=== PATIENT | female | born 1980 | race Caucasian/White ===

== ENCOUNTER 2017-07-28 02:15 | Inpatient (IN) | payer BC ==
[~2017-07-28] VITALS: Ht 165.1 cm; Wt 96.0 kg
--- OUTSIDE RECORDS SUMMARY | ~2017-07-28 | XMS ---
Demographics + + + | Address | [address] | | | [address] | | | [place] [address] | + + + | Preferred Language | Unknown | + + + | Marital Status | Unknown | + + + | Holiness Affiliation | Unknown | + + + | Race | Unknown | + + + | Ethnic Group | Unknown | + + + Author + + + | Author | [facility] | + + + | Organization | [facility] | + + + | Address | [address] | | | [place] [address] | + + + | Phone | | + + + Care Team Providers + + + + | Care Engineering Faculty Member Name | Role | Phone | + + + + Unavailable | Unavailable | + + + + PROBLEMS +---------+ + + +--------+ + + | Type | Condition | ICD9-CM | CER85-MV | Onset | Condition | SNOMED | | | | Code | Code | Dates | Status | Code | +---------+ + + +--------+ + + | Problem | Encounter | Z34.90 | | | Active | [id number] | | | for | | | | | | | | supervisio | | | | | | | | n of | | | | | | | | normal | | | | | | | | | | | | | | +---------+ + + +--------+ + + | Problem | Flu | J11.1 | | | Active | [id number] | +---------+ + + +--------+ + + | Problem | LOM (left | H66.92 | | | Active | [id number] | | | otitis | | | | | | | | media) | | | | | | +---------+ + + +--------+ + + ALLERGIES Unknown Allergies SOCIAL HISTORY No smoking Hx information available PLAN OF CARE VITAL SIGNS MEDICATIONS + + + + + + + +--------+ | Medicati | Instruct | Dosage | Frequenc | Start | End Date | Duration | Status | | on | ions | | y | Date | | | | + + + + + + + +--------+ | Diflucan | Orally | 1 tablet | | Apr, | 27 Apr, | 1 dose | Active | | 150 MG | Once | | | 2017 | 2017 | | | + + + + + + + +--------+ RESULTS No Results PROCEDURES No Known procedures IMMUNIZATIONS No Known Immunizations"
--- OUTSIDE RECORDS SUMMARY | ~2017-07-28 | XMS ---
Demographics + + + | Address | [address] | | | [address] | | | [place] [address] | + + + | Preferred Language | Unknown | + + + | Marital Status | Unknown | + + + | Religion Affiliation | Unknown | + + + | Race | Unknown | + + + | Ethnic Group | Unknown | + + + Author + + + | Author | [facility] | + + + | Organization | [facility] | + + + | Address | [address] | | | [place] [address] | + + + | Phone | | + + + Care Team Providers + + + + | Care Product Marketing Engineer Name | Role | Phone | + + + + Unavailable | Unavailable | + + + + PROBLEMS +---------+ + + +--------+ + + | Type | Condition | ICD9-CM | [id number] | Onset | Condition | SNOMED | | | | Code | Code | Dates | Status | Code | +---------+ + + +--------+ + + | Problem | Encounter | Z34.90 | | | Active | [id number] | | | for | | | | | | | | supervisio | | | | | | | | n of | | | | | | | | normal | | | | | | | | | | | | | | +---------+ + + +--------+ + + | Problem | Flu | J11.1 | | | Active | 2966542 | +---------+ + + +--------+ + + | Problem | LOM (left | H66.92 | | | Active | [id number] | | | otitis | | | [...] + + + + + +--------+ | Zovirax | Orally | 1 tablet | 8h | 05 Lukas, | | 5 days | Active | | 400 MG | Three | | | 2017 | | | | | | times a | | | | | | | | | day | | | | | | | + + + + + + + +--------+ RESULTS No Results PROCEDURES No Known procedures IMMUNIZATIONS No Known Immunizations"
--- OUTSIDE RECORDS SUMMARY | ~2017-07-28 | XMS ---
Demographics + + + | Address | [address] | | | [address] | | | [place] [address] | + + + | Preferred Language | Unknown | + + + | Marital Status | Unknown | + + + | Islam Affiliation | Unknown | + + + | Race | Unknown | + + + | Ethnic Group | Unknown | + + + Author + + + | Author | [facility] | + + + | Organization | [facility] | + + + | Address | [address] | | | [place] [address] | + + + | Phone | | + + + Care Team Providers + + + + | Care Larriman Name | Role | Phone | + + + + Unavailable | Unavailable | + + + + PROBLEMS +---------+ + + +--------+ + + | Type | Condition | ICD9-CM | TFS31-SK | Onset | Condition | SNOMED | | | | Code | Code | Dates | Status | Code | +---------+ + + +--------+ + + | Problem | Encounter | Z34.90 | | | Active | [id number] | | | for | | | | | | | | supervisio | | | | | | | | n of | | | | | | | | normal | | | | | | | | | | | | | | +---------+ + + +--------+ + + | Problem | Flu | J11.1 | | | Active | 2673894 | +---------+ + + +--------+ + + | Problem | LOM (left | H66.92 | | | Active | [id number] | | | otitis | | | | | | | | media) | | | | | | +---------+ + + +--------+ + + ALLERGIES Unknown Allergies SOCIAL HISTORY No smoking Hx information available PLAN OF CARE VITAL SIGNS MEDICATIONS Unknown Medications RESULTS No Results PROCEDURES No Known procedures IMMUNIZATIONS No Known Immunizations"
[~2017-07-28 02:15] MED LIST: CEPHALEXIN500 MG PO; CYMBALTA30 MG PO; GABAPENTIN100 MG PO; KEFLEX500 MG PO; KOSHER PRENATA1 EACH PO; MELOXICAM15 MG PO; METOPROLOL TART25 MG PO; NORCO 5-325 TA1 EACH PO; PERCOCET 5-3251 EACH PO; PLAQUENIL200 MG PO; PROMETHAZINE12.5 M1 PO; XANAX0.5 MG PO
== END 2017-07-29 12:25 | disposition home or self-care (01) | DRG 775 ==
LOC: FBCO 02:15 → FBC 03:40
PROVIDERS: ADMIT Obstetrics & Gynecology
PROC: 10E0XZZ Delivery of Products of Conception, External Approach (ICD-10-PCS; principal; 2017-07-28)
PROC: 10907ZC Drainage of Amniotic Fluid, Therapeutic from Products of Conception, Via Natural or Artificial Opening (ICD-10-PCS; 2017-07-28)
PROC: 3E0234Z Introduction of Serum, Toxoid and Vaccine into Muscle, Percutaneous Approach (ICD-10-PCS; 2017-07-29)
DX: O80 Encounter for full-term uncomplicated delivery (principal); Z3A.38 38 weeks gestation of pregnancy; Z37.0 Single live birth; Z23 Encounter for immunization
CPT/HCPCS: 01960; 36415; 85027; 90707; J2590; J7120

== ENCOUNTER 2018-01-27 03:48 | Emergency (ER) | payer BC ==
[~2018-01-27] VITALS: Ht 165.1 cm; Wt 90.7 kg
[2018-01-27] MEDS ORDERED: METHOTREXA25 MG/1 ML INJ (04:10)
--- OUTSIDE RECORDS SUMMARY | 2018-01-27 05:42 | XMS | Clinical Summary ---
Demographics + + + | Address | [address] | | | [place] [address] | + + + | Home Phone | | + + + | Preferred Language | Unknown | + + + | Marital Status | Unknown | + + + | Restorationism Affiliation | Unknown | + + + | Race | Unknown | + + + | Ethnic Group | Unknown | + + + Author + + + | Author | [facility] | + + + | Organization | [facility] | + + + | Address | Unknown | + + + | Phone | Unavailable | + + + Support + + +---------+ + | Name | Relationship | Address | Phone | + + +---------+ + | Alcon Mercado | ECON | Unknown | | + + +---------+ + Care Team Providers + +------+ + | Care Retail Client Solutions Analyst Name | Role | Phone | + +------+ + | Azam Granda MD | PP | | + +------+ + Allergies + + + + + + | Active Allergy | Reactions | Severity | Noted | Comments | | | | | Date | | + + + + + + | Moxifloxacin | Rash | Medium | 20/20 | | | | | | 17 | | + + + + + + | Codeine | Nausea and Vomiting | Low | 04/20/20 | | | | | | 17 | | + + + + + + | Latex | Rash | Medium | 06/05/20 | | | | | | 17 | | + + + + + + | Ondansetron | Nausea and Vomiting | Low | 02/10/20 | | | | | | 17 | | + + + + + + Current Medications + + +-------+---------+------+------+-------+ | Prescription | Sig. | Disp. | Refills | Star | End | Statu | | | | | | t | Date | s | | | | | | Date | | | + + +-------+---------+------+------+-------+ | Vit-Fe | Take 1 tablet by | | | | | Activ | | Fumarate-FA | mouth daily with | | | | | e | | ( | breakfast. | | | | | | | MULTIVITAMIN & | | | | | | | | MINERALS W IRON/FA) | | | | | | | | 27-0.8 MG TABS | | | | | | | | tablet | | | | | | | + + +-------+---------+------+------+-------+ | metoprolol | Take 25 mg by mouth | | | | | Activ | | (LOPRESSOR) 25 MG | 2 (two) times daily | | | | | e | | tablet | as needed. | | | | | | + + +-------+---------+------+------+-------+ Active Problems + + + | Problem | Noted Date | + + + | SVT (supraventricular tachycardia) | 06/05/2017 | + + + Family History + + +------+ + | Medical History | Relation | Name | Comments | + + +------+ + | Diabetes type II | Father | | | + + +------+ + + +------+--------+ + | Relation | Name | Status | Comments | + +------+--------+ + | Father | | | | + +------+--------+ + Social History + +-------+ +--------+ + | Tobacco Use | Types | Packs/Day | Years | Date | | | | | Used | | + +-------+ +--------+ + | Former Smoker | | | | Quit: 11/23/2016 | + +-------+ +--------+ + + +---+---+---+ | Smokeless Tobacco: | | | | | Never Used | | | | + +---+---+---+ + + +---------+ + | Alcohol Use | Drinks/We | oz/Week | Comments | | | ek | | | + + +---------+ + | No | | | | + + +---------+ + + + + | Sex Assigned at | Date Recorded | | | | + + + | Not on file | | + + + Last Filed Vital Signs + + + + | Vital Sign | Reading | Time Taken | + + + + | Blood Pressure | 118/60 | 09/06/2017 2:11 PM PST | + + + + | Pulse | 87 | 09/06/2017 2:11 PM PST | + + + + | Temperature | - | - | + + + + | Respiratory Rate | - | - | + + + + | Oxygen Saturation | 97% | 09/06/2017 2:11 PM PST | + + + + | Inhaled Oxygen | - | - | | Concentration | | | + + + + | Weight | 89.7 kg (197 lb 11.2 | 09/06/2017 2:11 PM PST | | | oz) | | + + + + | Height | 165.1 cm (5' 5") | 09/06/2017 2:11 PM PST | + + + + | Body Mass Index | 32.9 | 09/06/2017 2:11 PM PST | + + + + Plan of Treatment + + + + + | Health Maintenance | Due Date | Last Done | Comments | + + + + + | Vaccine: | | | | | Dtap/Tdap/Td (1 - | 1 | | | | Tdap) | | | | + + + + + | Cervical Cancer | | | | | Screening (Pap) | 3 | | | + + + + + | Vaccine: Influenza | | | | | (Season Ended) | 8 | | | + + + + + Results Not on filefrom Last 3 Months Insurance +---------+--------+ +------+-------+ + | Payer | Benefi | Subscriber | Type | Phone | Address | | | t Plan | ID | | | | | | / | | | | | | | Group | | | | | +---------+--------+ +------+-------+ + | PREMERA | PREMER | xxxxxxxxxxx | | | [place] [address] [id number] | | | A BLUE | [phone] | | | [place] | | | CARD | | | | [phone] | +---------+--------+ +------+-------+ + + +--------+ +--------+ + + | Guarantor Name | Accoun | Relation to | Date | Phone | Billing Address | | | t Type | Patient | of | | | | | | | | | | + +--------+ +--------+ + + | MELLISSA JIMENEZ | Person | Self [birth year] | Home: | [address] | | | al/Fam | | 1980 | [phone] | [address], | | | [place] | | | [phone] | [place] [address] | + +--------+ +--------+ + +
--- OUTSIDE RECORDS SUMMARY | 2018-01-27 05:42 | XMS | Clinical Summary ---
Demographics + + + | Address | [address] | | | [place] [address] | + + + | Home Phone | | + + + | Preferred Language | Unknown | + + + | Marital Status | Unknown | + + + | Gnosticism Affiliation | Unknown | + + + | Race | Unknown | + + + | Ethnic Group | Unknown | + + + Author + + + | Author | [facility] | + + + | Organization | [facility] | + + + | Address | Unknown | + + + | Phone | Unavailable | + + + Support + + +---------+ + | Name | Relationship | Address | Phone | + + +---------+ + | Alcon Mercado | ECON | Unknown | | + + +---------+ + Care Team Providers + +------+ + | Care Coal Trimmer Machine Operator Name | Role | Phone | + [...] | [phone] | | | [place] [address] [id number] | | | A BLUE | xxx | | | [place] | | | CARD | | | | [phone] | +---------+--------+ +------+-------+ + + +--------+ +--------+ + + | Guarantor Name | Accoun | Relation to | Date | Phone | Billing Address | | | t Type | Patient | of | | | | | | | | | | + +--------+ +--------+ + + | MELLISSA JIMENEZ | Person | Self | [birth year] | Home: | [address] | | | al/Fam | | 1980 | [phone] | [address] [place], | | | [place] | | | [phone] | [place] [phone] | + +--------+ +--------+ + +
[2018-01-27] MEDS ORDERED: NORCO 5-325 TA1 EACH PO (06:14)
[2018-01-27] MEDS ORDERED: CEPHALEXIN500 MG PO (06:14)
== END 2018-01-27 06:45 | disposition home or self-care (01) ==
LOC: ED 03:48
DX: J02.0 Streptococcal pharyngitis (principal); F17.200 Nicotine dependence, unspecified, uncomplicated; M06.9 Rheumatoid arthritis, unspecified; Z88.8 Allergy status to other drugs, medicaments and biological substances; Z91.040 Latex allergy status; Z88.5 Allergy status to narcotic agent; Z88.1 Allergy status to other antibiotic agents; Z79.899 Other long term (current) drug therapy
CPT/HCPCS: 71046; 80053; 81001; 85025; 87880; 96374; 96375; 99283; J0690; J1885; J7030

== ENCOUNTER 2018-11-09 09:53 | Emergency (ER) | payer BC ==
[~2018-11-09] VITALS: Ht 165.1 cm; Wt 90.7 kg
[~2018-11-09 09:53] MED LIST changes: +METHOTREXA25 MG/1 ML INJ
[2018-11-09] MEDS ORDERED: MELOXICAM15 MG PO (10:04)
[2018-11-09] MEDS ORDERED: CYMBALTA30 MG PO (10:33)
[2018-11-09] MEDS ORDERED: CYCLOBENZAPRINE10 MG PO (10:33)
[2018-11-09] MEDS ORDERED: NEURONTIN300 MG PO (10:33)
== END 2018-11-09 10:39 | disposition home or self-care (01) ==
LOC: ED 09:53
DX: M54.41 Lumbago with sciatica, right side (principal); M79.7 Fibromyalgia; M06.9 Rheumatoid arthritis, unspecified; F17.200 Nicotine dependence, unspecified, uncomplicated; Z91.09 Other allergy status, other than to drugs and biological substances; Z91.040 Latex allergy status; Z88.1 Allergy status to other antibiotic agents; Z88.5 Allergy status to narcotic agent; Z88.8 Allergy status to other drugs, medicaments and biological substances; Z79.899 Other long term (current) drug therapy
CPT/HCPCS: 99283

== ENCOUNTER 2019-07-04 20:04 | Emergency (ER) | payer BC ==
[~2019-07-04] VITALS: Ht 165.1 cm; Wt 90.7 kg
[~2019-07-04 20:04] MED LIST changes: +CYCLOBENZAPRINE10 MG PO; +NEURONTIN300 MG PO
[2019-07-04] MEDS ORDERED: DICLOFENAC SODI50 MG PO (20:11)
[2019-07-04] MEDS ORDERED: DIFLUCAN150 MG PO (20:12)
== END 2019-07-04 21:12 | disposition home or self-care (01) ==
LOC: ED 20:04
DX: G43.909 Migraine, unspecified, not intractable, without status migrainosus (principal); F17.200 Nicotine dependence, unspecified, uncomplicated; Z91.040 Latex allergy status; Z88.8 Allergy status to other drugs, medicaments and biological substances; Z88.1 Allergy status to other antibiotic agents; Z88.5 Allergy status to narcotic agent; Z91.048 Other nonmedicinal substance allergy status
CPT/HCPCS: 96361; 96374; 96375; 99283-25; J1200; J1885; J2765; J7030

== ENCOUNTER 2019-12-25 13:59 | Emergency (ER) | payer BC ==
[~2019-12-25] VITALS: Ht 165.1 cm; Wt 90.7 kg
[~2019-12-25 13:59] MED LIST changes: +DICLOFENAC SODI50 MG PO; +DIFLUCAN150 MG PO
--- OUTSIDE RECORDS SUMMARY | 2019-12-25 14:02 | XMS ---
PreManage Notification: BIJAN ENGLAND Security Psych Social Worker Events No recent Security Events currently on file CRITERIA MET - [facility] CARE PROVIDERS There are no care providers on record at this time. Tala has no Care Guidelines for this patient. Andrey VISIT COUNT (12 MO.) 2 RANDA Bernstein TOTAL 2 NOTE: Visits indicate total known visits. ED/C VISIT TRACKING (12 MO.) 12/25/2019 13:59 [place] TYPE: Emergency COMPLAINT: - HEADACHE 07/04/2019 20:05 [place] TYPE: Emergency COMPLAINT: - HEADACHE DIAGNOSES: - Headache - Other nonmedicinal substance allergy status - Latex allergy status - Nicotine dependence, unspecified, uncomplicated - Allergy status to other antibiotic agents status - Allergy status to oth drug/meds/biol subst status - Allergy status to narcotic agent status - Migraine, unsp, not intractable, without status migrainosus INPATIENT VISIT TRACKING (12 MO.) No inpatient visits to display in this time frame [email or web address]
== END 2019-12-25 15:48 | disposition home or self-care (01) ==
LOC: ED 13:59
DX: G43.909 Migraine, unspecified, not intractable, without status migrainosus (principal); Z91.048 Other nonmedicinal substance allergy status; Z91.040 Latex allergy status; Z88.1 Allergy status to other antibiotic agents; Z88.5 Allergy status to narcotic agent; Z79.899 Other long term (current) drug therapy
CPT/HCPCS: 96374; 96375; 99283-25; J1200; J1885; J2765

== ENCOUNTER 2022-03-06 06:34 | Inpatient (IN) | payer BC ==
[~2022-03-06] VITALS: Ht 165.1 cm; Wt 90.7 kg
--- NOTE | ~2022-03-06 | HP ---
[facility] [address] [place], [place] [address] Draft ADMISSION DATE: 03/06/2022 CHIEF COMPLAINT: Flank pain. HISTORY OF PRESENT ILLNESS: Mrs. Jimenez is a pleasant 41-year-old, G4, P3, with IUP at 17 weeks four days by LMP, confirmed by first-trimester ultrasound, who presented to the emergency department complaining of increasing right flank pain since earlier this week. complicated by history of supraventricular tachycardia, migraines, advanced maternal age, fibromyalgia, and history of HSV. At routine OB visit today, the patient was concerned of possible urinary tract infection and urine culture was obtained. Unfortunately, culture results had not yet been reported. The patient reports right flank pain increasing in intensity and severity, feels like "I'm being punched." The pain radiates over her entire right side especially down into her pelvis and somewhat down her leg. She denies fevers or chills. Does report dysuria. Has a history of kidney stones in the past, but reports that this feels "different and more crampy." The patient reports no bleeding or abnormal discharge. She has occasional cramping and has a history of labor. She reports possible early flutters. No other questions or concerns at this time. PAST MEDICAL HISTORY: 1. Supraventricular tachycardia. 2. Rheumatoid arthritis. 3. Migraines. 4. Fibromyalgia. PAST SURGICAL HISTORY: 1. Cholecystectomy. 2. Heart ablation for SVT. 3. Tubes and adenoids. 4. History of various orthopedic procedures. FAMILY HISTORY: None. MEDICATIONS: 1. vitamin. 2. Imitrex p.r.n. ALLERGIES: PATIENT NAME: BIJAN JIMENEZ HISTORY AND PHYSICAL DATE OF : 84 REPORT #: [id number] PHYSICIAN: NKECHI BAZAN DO PCP: DOTTIE HORAN MD REPORT IS CONFIDENTIAL AND NOT TO BE RELEASED WITHOUT AUTHORIZATION [facility] [address] [place], [place] [address] Draft 1. Codeine, nausea, but is able to tolerate Carson. 2. Zofran, nausea. SOCIAL HISTORY: The patient does not use tobacco or alcohol or recreational drugs. 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 PHYSICAL EXAMINATION: VITAL SIGNS: Temperature 98.6, pulse 87, respiratory rate 18, blood pressure 124/57, and SaO2 of 98%. GENERAL: The patient is woman, sitting somewhat uncomfortably in a hospital [place]. Gravid uterus. HEENT: Normocephalic, atraumatic. NECK: Normal with no masses. Trachea midline. HEART: Regular rate and rhythm. LUNGS: Clear to auscultation bilaterally. ABDOMEN: Soft, nondistended, nontender, with no guarding or rebound. Gravid uterus with fundus approximately 17 cm. Left flank normal. Right flank very tender to light percussion. EXTREMITIES: No edema. PELVIC: Deferred. LABORATORY DATA: WBCs 10.8, hemoglobin 12.6, and platelets 249. CMP was normal. Urine shows protein, blood, nitrites, and no crystals. Ultrasound demonstrates right hydronephrosis, normal left kidney and bilateral ureteral jets. DIAGNOSES: 1. Intrauterine at 17 weeks' gestation. 2. Acute pyelonephritis. 3. History of nephrolithiasis and possible current nephrolithiasis. PLAN: The patient received ceftriaxone 1 g IV in the emergency department. Considering the severity of the patient's pain, recommend inpatient admission where she will receive Rocephin daily until significant improvement in her symptoms. Urine culture in the office was reviewed that demonstrates resistance to Bactrim, gentamicin, and ampicillin. Sensitivity to ceftriaxone and ciprofloxacin noted. We will treat the patient's pain with combination of IV Dilaudid for breakthrough pain, Carson and Tylenol. We will treat possible nephrolithiasis with Flomax and IV fluids. Dr. Cobos was consulted by the emergency department physician and she recommends repeat ultrasound as outpatient to ensure that the ureter stayed patent. Obstetrical ultrasound was ordered today for PATIENT NAME: BIJAN JIMENEZ HISTORY AND PHYSICAL DATE OF : [birth year] REPORT #: [id number] PHYSICIAN: NKECHI BAZAN DO PCP: DOTTIE HORAN MD REPORT IS CONFIDENTIAL AND NOT TO BE RELEASED WITHOUT AUTHORIZATION [address] [address] Draft history of labor and cramping to ensure the cervix was not significantly shortened. Anticipate discharge home in one or two days once significant progression in her symptoms has been confirmed with outpatient followup renal ultrasound. All questions were answered to best of my ability to the patient's apparent satisfaction. Nkechi Bazan DO JDW/MODL /[id number] Copies: ~ PATIENT NAME: SAMANTABIJAN MILLER HISTORY AND PHYSICAL DATE OF : [birth year] REPORT #: [id number] PHYSICIAN: NKECHI BAZAN DO PCP: DOTTIE HORAN MD REPORT IS CONFIDENTIAL AND NOT TO BE RELEASED WITHOUT AUTHORIZATION
--- OUTSIDE RECORDS SUMMARY | 2022-03-06 06:36 | XMS ---
PreManage Notification: BIJAN ENGLAND Security Chief Lifestyle Officer Events No recent Security Events currently on file CRITERIA MET - PDMP CARE PROVIDERS DOTTIE HORAN [facility] 12/26/2019-Current PHONE: [phone] Tala has no Care Guidelines for this patient. EAparna VISIT COUNT (12 MO.) 1 RANDA Bernstein TOTAL 1 NOTE: Visits indicate total known visits. ED/UCC VISIT TRACKING (12 MO.) 03/06/2022 06:34 [place] [place] TYPE: Emergency COMPLAINT: - FLANK PAIN/17 WEEKS PREG INPATIENT VISIT TRACKING (12 MO.) No inpatient visits to display in this time frame [email or web address]
--- NOTE | 2022-03-07 08:29 | PR ---
[facility] [address] [address] [facility] [place], [place] [address] Signed AP Progress Notes Datetime Report Generated by CPN: 03/07/2022 08:29 Chief Complaint: Pyelonephritis PHYSICAL EXAM: [id number] General: Normal HEENT: Normal Neurologic: Normal Thyroid: Normal Cardiovascular: Normal Respiratory: Normal Breast: Normal Back: Abnormal Abdomen: Normal Genitourinary Exam: Not Done Extremities: Normal Physical Exam Comments: Flank pain on RIGHT continues to be significant / unchanged. Impression: IUP @ 17w5d Pyelonephritis Possible nephrolithiasis Plan: Pt seen and examined. Doing well. _ 20 - 30% improvement in pain. Afebrile. Voiding well. Needed dilaudid overnight Plan: continue ceftriaxone daily. Continue tx of possible stone w/ flomax / narcotics / IV fluids. Anticipate d/c home tomorrow if pain significantly improved. If not improved, would consult Dr. Cobos for further evaluation of cystourothroscopy or stenting if she thought that was indicated. VITAL SIGNS: [id number] EXAM: [id number] MEMBRANES: [id number] FETUS A: [id number] FETUS B: [id number] PROGRESS NOTES: [id number] Signing Physician: Nkechi Bazan DO Copies: ~ *Electronically Signed* 03/07/22 0829 NKECHI BAZAN DO PATIENT NAME: BIJAN ENGLAND [place] PROGRESS NOTE DATE OF : 84 PHYSICIAN: NKECHI BAZAN DO RPT #: [id number] REPORT IS CONFIDENTIAL AND NOT TO BE RELEASED WITHOUT AUTHORIZATION
--- NOTE | 2022-03-08 09:02 | PR ---
[facility] [address] [facility] [place], [place] [address] Signed AP Progress Notes Datetime Report Generated by CPN: 03/08/2022 09:02 Chief Complaint: Pyelonephritis PHYSICAL EXAM: [id number] General: Normal HEENT: Normal Neurologic: Normal Thyroid: Normal Cardiovascular: Normal Respiratory: Normal Breast: Not Done Back: Normal Abdomen: Normal Genitourinary Exam: Not Done Extremities: Normal Physical Exam Comments: Flank pain much improved. Afebril. Impression: IUP @ 17w6d Pyelonephritis - improved Possible nephrolithiasis Plan: Pt doing much better. Afebril and pain much improved. Desires d/c home. Reviewed culture obtained in office last week. Discharge home w/ Macrobid 100mg BID x 10d, Keflex 500mg nightly for remainder of after completion of macrobid, Kindred 5/325 1 tab po q 6 hr prn pain #10, Flomax 0.4mg PO daily x 30d, and Phenergan 12.5mg 1 tab po q6 hr prn nausea. VITAL SIGNS: [id number] EXAM: [id number] MEMBRANES: [id number] FETUS A: [id number] FETUS B: [id number] PROGRESS NOTES: [id number] Signing Physician: Nkechi Bazan DO Copies: ~ *Electronically Signed* 03/08/22 0902 NKECHI BAZAN DO PATIENT NAME: BIJAN ENGLAND [place] PROGRESS NOTE DATE OF : 84 PHYSICIAN: NKECHI BAZAN DO [facility] #: [id number] REPORT IS CONFIDENTIAL AND NOT TO BE RELEASED WITHOUT AUTHORIZATION
== END 2022-03-08 09:50 | disposition home or self-care (01) | DRG 833 ==
LOC: ED 06:34 → FBC 10:52
PROVIDERS: ADMIT Obstetrics & Gynecology; ATTEND Obstetrics & Gynecology
DX: O23.02 Infections of kidney in pregnancy, second trimester (principal); Z20.822 Contact with and (suspected) exposure to COVID-19; N20.0 Calculus of kidney; M79.7 Fibromyalgia; M06.9 Rheumatoid arthritis, unspecified; G43.909 Migraine, unspecified, not intractable, without status migrainosus; Z90.49 Acquired absence of other specified parts of digestive tract; Z98.890 Other specified postprocedural states; Z3A.17 17 weeks gestation of pregnancy; Z88.5 Allergy status to narcotic agent; Z88.8 Allergy status to other drugs, medicaments and biological substances
CPT/HCPCS: 36415; 76770; 76815; 76817; 80048; 81001; 84112; 85025; 87088; 87502; A9270; C9803; J0696; J1170; J1650; J2550; J2765; J7030; U0003

== ENCOUNTER 2022-08-01 22:18 | Inpatient (IN) | payer BC ==
[~2022-08-01] VITALS: Ht 165.1 cm; Wt 104.3 kg
[2022-08-02] MEDS ORDERED: METOPROLOL TART25 MG PO (05:46)
--- NOTE | 2022-08-02 08:06 | PR ---
[facility] [address] [facility] [place], [place] [address] Signed Progress Notes IP Datetime Report Generated by CPN: 08/02/2022 08:05 PROGRESS NOTES: [id number] Impression: Normal Progression of Labor; Reassuring Heart Rate Procedures: Sterile Vag Exam Plan: Continue Present Management VITAL SIGNS: [id number] Vital Signs: Reviewed; Within Normal Limits VS Notable Details: Afebrile EXAM: [id number] Dilatation: 4.0 Effacement: 60 Station: -2 Contractions: Irregular MEMBRANES: [id number] Comments: Pt seen and examined. Comfortable w/ epidural. Continue pitocin augmentation; consider internals at next check. FETUS A: [id number] FHR Baseline: 145 Variability: Moderate 6-25bpm Accelerations: None Decelerations: None FHR Category: Category I Presentation: Vertex Comments on Fetus A: No evidence of metabolic acidosis FETUS B: [id number] Signing Physician: Nkechi Bazan DO Copies: ~ *Electronically Signed* 08/02/22 08 NKECHI BAZAN DO PATIENT NAME: SAMANTABIJAN [facility] PROGRESS NOTE DATE OF : 84 PHYSICIAN: NKECHI BAZAN DO RPT #: [id number] REPORT IS CONFIDENTIAL AND NOT TO BE RELEASED WITHOUT AUTHORIZATION
--- NOTE | 2022-08-02 10:50 | PR ---
[facility] [address] [place], [place] [address] Signed Progress Notes IP Datetime Report Generated by CPN: 08/02/2022 10:50 PROGRESS NOTES: [id number] Impression: Normal Progression of Labor; Reassuring Heart Rate Procedures: Artificial ROM; Intrauterine Pressure Catheter Plan: Continue Present Management; Anticipate Vaginal Delivery Informed Consent Obtain: Vaginal Delivery VITAL SIGNS: [id number] Vital Signs: Reviewed; Within Normal Limits VS Notable Details: Afebrile EXAM: [id number] Dilatation: 6.0 Effacement: 80 Station: -2 Contractions: Irregular MEMBRANES: [id number] ROM Note: forebag ruptured by Bazan DO Comments: Pt seen and examined. Comfortable w/ epidural. Reviewed residual forebag and recommend AROM w/ IUPC insertion. Pt understands and agrees. Small forebag ruptured for small amount of clear fluid. IUPC placed w/out difficulty. Reviewed normal progress of labor and anticipated . All questions answered. FETUS A: [id number] FHR Baseline: 145 Variability: Moderate 6-25bpm Accelerations: None Decelerations: None FHR Category: Category I Presentation: Vertex Comments on Fetus A: No evidence of metabolic acidosis FETUS B: [id number] Signing Physician: Nkechi Bazan DO Copies: ~ *Electronically Signed* 08/02/22 1057 NKECHI BAZAN DO PATIENT NAME: BIJAN ENGLAND ANGELA PROGRESS NOTE DATE OF : 84 PHYSICIAN: NKECHI BAZAN DO RPT #: [id number] REPORT IS CONFIDENTIAL AND NOT TO BE RELEASED WITHOUT AUTHORIZATION
[2022-08-02] MEDS ORDERED: ACYCLOVIR400 MG PO (11:35)
--- NOTE | 2022-08-02 14:40 | PR ---
[facility] [address] [place], [place] [address] Signed Progress Notes IP Datetime Report Generated by CPN: 08/02/2022 14:40 PROGRESS NOTES: [id number] Impression: Normal Progression of Labor; Reassuring Heart Rate Procedures: Sterile Vag Exam Plan: Continue Present Management Informed Consent Obtain: Vaginal Delivery VITAL SIGNS: [id number] Vital Signs: Reviewed; Within Normal Limits VS Notable Details: Afebrile EXAM: [id number] Dilatation: 6.5 Effacement: 80 Station: -2 Contractions: Irregular MEMBRANES: [id number] ROM Note: forebag ruptured by Bazan DO Comments: Pt seen and evaluated. Doing well. Comfortable w/ epidural. Ctxs inadequate and slow change noted. Will continue pitocin per protocol. Pt understands and agrees. FETUS A: [id number] FHR Baseline: 145 Variability: Moderate 6-25bpm Accelerations: None Decelerations: None FHR Category: Category I Presentation: Vertex Comments on Fetus A: No evidence of metabolic acidosis FETUS B: [id number] Signing Physician: Nkechi Bazan DO Copies: ~ *Electronically Signed* 08/02/22 0130 NKECHI BAZAN DO PATIENT NAME: BIJAN ENGLAND PROGRESS NOTE DATE OF : 84 PHYSICIAN: NKECHI BAZAN DO RPT #: [id number] REPORT IS CONFIDENTIAL AND NOT TO BE RELEASED WITHOUT AUTHORIZATION
--- NOTE | 2022-08-02 17:03 | PR ---
[facility] [address] [place], [place] [address] Signed Progress Notes IP Datetime Report Generated by CPN: 08/02/2022 17:02 PROGRESS NOTES: [id number] Impression: Normal Progression of Labor; Reassuring Heart Rate Procedures: Sterile Vag Exam Plan: Continue Present Management; Anticipate Vaginal Delivery Informed Consent Obtain: Vaginal Delivery VITAL SIGNS: [id number] Vital Signs: Reviewed; Within Normal Limits VS Notable Details: Afebrile EXAM: [id number] Dilatation: 10.0 Effacement: 100 Station: -2 Contractions: Irregular MEMBRANES: [id number] ROM Note: forebag ruptured by Bazan DO Comments: Pt seen and examined. More uncomfortable w/ contractions. On exam, complete and zero station. Reviewed anticipated course of delivery. All questions answered. FETUS A: [id number] FHR Baseline: 145 Variability: Moderate 6-25bpm Accelerations: None Decelerations: None FHR Category: Category I Presentation: Vertex Comments on Fetus A: No evidence of metabolic acidosis FETUS B: [id number] Signing Physician: Nkechi Bazan DO Copies: ~ *Electronically Signed* 08/02/22 280 NKECHI BAZAN DO PATIENT NAME: BIJAN ENGLAND PROGRESS NOTE DATE OF : 84 PHYSICIAN: NKECHI BAZAN DO RPT #: [id number] REPORT IS CONFIDENTIAL AND NOT TO BE RELEASED WITHOUT AUTHORIZATION
--- NOTE | 2022-08-03 08:45 | PR ---
[facility] [address] [facility] [place], [place] [address] Signed PP Progress Notes Datetime Report Generated by CPN: 08/03/2022 08:45 SUBJECTIVE: [id number] Pain: Within Normal Limits Nausea/Vomiting: Denies Flatus: Yes Bowel Movement: No Vital Signs: [id number] Vital Signs: Reviewed; Within Normal Limits Cardiovascular: Normal Respiratory: Normal Abdomen/Uterus: Normal Lochia: Normal Vulva/Perineum: Not Done Breasts: Not Done CVA Tenderness: Normal Extremities: Normal Incision: Not Applicable Progress: Normal Exam Comments: Fundus firm U-2 nontender IMPRESSION/PLAN/PROCEDURES: [id number] Impression: Normal Progression Plan: Continue Present Management Progress Notes: Pt seen and examined. Doing well. Ambulating, voiding, and tolerating full diet. Pain and lochia minimal. well. No fevers/chills. Desires d/c home today which is likely but dependent on pediatric assessment of . Reviewed d/c instructions and medications in detail w/ pt. All questions answered. Signing Physician: Nkechi Bazan DO Copies: ~ *Electronically Signed* 08/03/22 0880 NKECHI BAZAN DO PATIENT NAME: BIJAN ENGLAND PROGRESS NOTE DATE OF : 84 PHYSICIAN: NKECHI BAZAN DO RPT #: [id number] REPORT IS CONFIDENTIAL AND NOT TO BE RELEASED WITHOUT AUTHORIZATION
== END 2022-08-03 18:22 | disposition home or self-care (01) | DRG 806 ==
LOC: FBCO 22:18 → FBC 22:39
PROVIDERS: ADMIT Obstetrics & Gynecology; ATTEND Obstetrics & Gynecology
PROC: 10E0XZZ Delivery of Products of Conception, External Approach (ICD-10-PCS; principal; 2022-08-02)
PROC: 0HQ9XZZ Repair Perineum Skin, External Approach (ICD-10-PCS; 2022-08-02)
PROC: 00HU33Z Insertion of Infusion Device into Spinal Canal, Percutaneous Approach (ICD-10-PCS; 2022-08-02)
PROC: 3E0R3BZ Introduction of Anesthetic Agent into Spinal Canal, Percutaneous Approach (ICD-10-PCS; 2022-08-02)
PROC: 10H07YZ Insertion of Other Device into Products of Conception, Via Natural or Artificial Opening (ICD-10-PCS; 2022-08-02)
DX: O42.02 Full-term premature rupture of membranes, onset of labor within 24 hours of rupture (principal); O98.32 Other infections with a predominantly sexual mode of transmission complicating childbirth; Z37.0 Single live birth; O70.0 First degree perineal laceration during delivery; Z3A.38 38 weeks gestation of pregnancy; Z67.10 Type A blood, Rh positive; Z87.891 Personal history of nicotine dependence; A60.00 Herpesviral infection of urogenital system, unspecified
CPT/HCPCS: 36415; 85027; 86850; 86900; 86901; A9270; J2550; J2590; J7121